=== PATIENT | male | born 1995 | race American Indian/Alaskan Native ===

== ENCOUNTER 2022-03-04 20:59 | Emergency (ER) | payer SELFPAY ==
[2022-03-04 22:25] VITALS: BP 116/60
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
== END 2022-03-05 01:00 | disposition left against medical advice (07) ==
LOC: ED 20:59
DX: S99.929A Unspecified injury of unspecified foot, initial encounter (principal); Z53.21 Procedure and treatment not carried out due to patient leaving prior to being seen by health care provider; X58.XXXA Exposure to other specified factors, initial encounter; Y93.89 Activity, other specified; Y92.89 Other specified places as the place of occurrence of the external cause; Y99.8 Other external cause status

== ENCOUNTER 2022-03-05 18:34 | Emergency (ER) | payer SELFPAY | END 2022-03-05 18:40 | disposition left against medical advice (07) | LOC: ED 18:34 | DX: S99.929A Unspecified injury of unspecified foot, initial encounter (principal); Z53.21 Procedure and treatment not carried out due to patient leaving prior to being seen by health care provider; X58.XXXA Exposure to other specified factors, initial encounter; Y93.89 Activity, other specified; Y92.89 Other specified places as the place of occurrence of the external cause; Y99.8 Other external cause status ==